=== PATIENT | female | born 1970 | race Hispanic/Latino ===

== ENCOUNTER 2016-09-23 08:44 | Emergency (ER) | payer OTHER ==
[~2016-09-23] VITALS: Ht 167.6 cm; Wt 88.0 kg
[~2016-09-23 08:44] MED LIST: ALEVE220 MG PO; FLEXERIL10 MG PO; MOTRIN800 MG PO; MULTIVITAMIN1 TAB PO; PROBIOTIC FORMU1 CAP PO
--- NOTE | 2016-09-23 09:04 | ED GENERAL ADULT ---
History of Present Illness General Chief Complaint: General Adult Stated Complaint: VOMITING AND CHEST DISCOMFORT"IT COULD BE STRESS" Source: patient Exam Limitations: no limitations Vital Signs & Intake/Output Vital Signs & Intake/Output Vital Signs Date Time Temp Pulse Resp B/P Pulse O2 O2 Flow FiO2 Ox Delivery Rate 09/23 1124 98.0 84 18 115/72 98 Room Air Room Air 09/23 0851 97.9 86 20 110/73 99 Room Air Room Air Allergies Coded Allergies: codeine (Intermediate, VOMITING 09/23/16) Reconcile Medications CYCLOBENZAPRINE HCL (Flexeril) 10 MG TAB 1 TAB PO TID PRN SPASM Avoid operating motor vehicle or heavy machinery Dicyclomine Hydrochloride (Bentyl) 10 MG CAPSULE 1 CAP PO TID PRN ABDOMINAL PAIN Ibuprofen (Motrin) 800 MG TAB 1 TAB PO TID PRN PAIN Lactobacillus Acidophilus (Probiotic Formula Capsule) 10B CELL CAPSULE 1 CAP PO DAILY PROBIOTIC (Reported) Multivitamin (Multiple Vitamins) 1 EACH TABLET 1 TAB PO DAILY SUPPLEMENT ( Reported) Naproxen Sodium (Aleve) 220 MG TABLET 2 TAB PO DAILY PRN PAIN (Reported) Ondansetron HCl (Zofran) 4 MG TABLET 1 TAB PO Q6-8P PRN NAUSEA Triage Note: PT TO ED WITH C/O NAUSEA AND VOMITING SINCE LAST NIGHT, DENIES DIARRHEA, DENIES URINARY DIFF. Triage Nurses Notes Reviewed? yes Onset: Abrupt Duration: constant Severity: mild Severity Numbers: 3 Modifying Factors: Worsens With: eating. : No Patient currently breastfeeds: No HPI: Patient is a 46-year-old female with a past medical history of anxiety who presents to emergency and that on Thursday 4 days ago after eating fish at a restaurant she had acute onset of 30 minutes after of upset stomach and nausea in which patient in the last 48 hours is had 3 episodes of nonbloody nonbilious emesis. Last bowel movement was within the last 24 hours no blood no melena noted. Denies any recent antibiotic use. Denies any fevers chills patient has been complaining of intermittent chest pain for the past 3 days. Patient is treating this to anxiety. Denies any dysuria hematuria vaginal bleeding vaginal discharge back pain. Patient last menstrual period was 8 days ago. Denies any . Patient can tolerate sips of water. (ANNE-MARIE PETERSEN,OSEAS) Past History Travel History Traveled to [place] past 21 day No Medical History Any Pertinent Medical History? 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 No (OSEAS OMALLEY) Review of Systems Review of Systems Constitutional: Reports: no symptoms. EENTM: Reports: no symptoms. Respiratory: Reports: no symptoms. Cardiovascular: Reports: no symptoms. GI: Reports: see HPI, nausea. Genitourinary: Reports: no symptoms. Musculoskeletal: Reports: no symptoms. Skin: Reports: no symptoms. Neurological/Psychological: Reports: no symptoms. Hematologic/Endocrine: Reports: no symptoms. Immunologic/Allergic: Reports: no symptoms. All Other Systems: Reviewed and Negative (OSEAS OMALLEY) Physical Exam Physical Exam General Appearance: no apparent distress, alert Comments: Well-developed well-nourished person in no acute distress HEENT: Normal EENT exam, Neck: Supple, no lymphadenopathy, normal range of motion without pain or tenderness Back: Nontender, no CVA tenderness. Cardiovascular: Regular rate and rhythms no murmurs rubs or gallops, normal JVP Respiratory: Chest nontender. No respiratory distress.breath sounds clear to auscultation bilaterally Abdomen: Soft, mild generalized point tenderness noted, no rebound tenderness no peritoneal signs nondistended, no appreciable organomegaly. Normal bowel sounds. No ascites Extremity: No edema, no calf tenderness to palpation, normal and equal pulses. Neuro: Alert oriented x3, motor sensory normal, Skin: No appreciable rash on exposed skin, skin is warm and dry. Psych: Mood and affect is normal, memory and judgment is normal. Core Measures ACS in differential dx? No CVA/TIA Diagnosis: No Severe Sepsis Present: No Septic Shock Present: No (OSEAS OMALLEY) Progress Differential Diagnoses I considered the following diagnoses in my evaluation of the patient: [ Gastroenteritis, appendicitis, SBO, colitis, C. difficile, mesenteric ischemia, pancreatitis, cholangitis, cholecystitis] Plan of Care: Orders Procedure Date/time Status EKG 09/23 0820 Active Current Medications Sig/Tommie Start time Last Medication Dose Stop Time Status Admin Ondansetron HCl 4 MG ONCE ONE 09/23 1000 CAN (Zofran) 09/23 1001 Sodium Chloride 1,000 ML BOLUS ONE 09/23 1000 CAN (Normal Saline 0.9%) 09/23 1059 Laboratory Tests 09/23/16 0947: Total Beta HCG Cancelled, CBC w Diff Cancelled, WBC Cancelled, RBC Cancelled, Hgb Cancelled, Hct Cancelled, MCV Cancelled, MCH Cancelled, RDW Cancelled, Plt Count Cancelled, MPV Cancelled, PUBS MCHC Cancelled, Urine Test Cancelled Patient has been complaining of intermittent chest pain however nothing today. Patient also has mild abdominal tenderness however patient is attributing this tenderness to multiple episodes of vomiting. Blood work was ordered however patient adamantly declines this evaluation and wanted just something for nausea. I stressed the importance to evaluate patient's symptoms however she still declined this evaluation. Patient did sign AMA form and was educated on risks if this was not evaluated and she understood and still refused blood work and urine analysis. EKG was unremarkable. Patient will be administered by mouth Zofran and is able to tolerate by mouth challenge. (OSEAS OMALLEY) Initial ED EKG: none (OSEAS OMALLEY) Differential Diagnoses I considered the following diagnoses in my evaluation of the patient: (BEATRIZ LOPEZ,MICKEY Whittaker) Departure Departure Disposition: LEFT AGAINST MEDICAL ADVICE Condition: Stable Clinical Impression Primary Impression: Abdominal pain Secondary Impressions: Nausea & vomiting Referrals: PATIENT HAS NO PRIMARY CARE DR (PCP/Family) Additional Instructions: DISCUSSED YOU ARE LEAVING AGAINST MEDICAL ADVICE, BEGIN THE PRESCRIPTION OF ZOFRAN FOR NAUSEA BEGIN THE PRESCRIPTION OF BENTYL FOR YOUR SYMPTOMS CLEAR LIQUID DIET TO REST YOUR BOWELS IF SYMPTOMS WORSEN, RETURN TO THE ER FOLLOW UP WITH GI DOCTOR ARJUN IF NO BETTER IN TWO DAYS PRESCRIPTIONS ARE WAITING AT [facility] Departure Forms: Customer Survey General Discharge Information Prescriptions: Current Visit Scripts Ondansetron HCl (Zofran) 1 TAB PO Q6-8P PRN NAUSEA #15 TAB Dicyclomine Hydrochloride (Bentyl) 1 CAP PO TID PRN ABDOMINAL PAIN #9 CAP (OSEAS OMALLEY) PA/BAKER BREAD Co-Sign Statement Statement: ED Attending supervision documentation- [] I saw and evaluated the patient. I have also reviewed all the pertinent lab results and diagnostic results. I agree with the findings and the plan of care as documented in the PA's/BAKER BREAD's documentation. [x] I have reviewed the ED Record and agree with the PA's/BAKER BREAD's documentation. [] Additions or exceptions (if any) to the PAs/BAKER BREAD's note and plan are summarized below: [] (BEATRIZ LOPEZ,MICKEY Whittaker) Critical Care Note Critical Care Note Critical Care Time: non-applicable (ANNE-MARIE PETERSEN,OSEAS)
[2016-09-23] MEDS ORDERED: ZOFRAN4 M2 PO (10:51)
[2016-09-23] MEDS ORDERED: BENTYL10 M1 PO (10:51)
[2016-09-23 11:24] VITALS: BP 115/72
== END 2016-09-23 11:25 | disposition left against medical advice (07) ==
LOC: ERH 08:44
DX: R10.9 Unspecified abdominal pain (principal); R11.2 Nausea with vomiting, unspecified
CPT/HCPCS: 81025; 93005; 93010; J3101

== ENCOUNTER 2016-11-13 14:58 | Emergency (ER) | payer OTHER ==
[~2016-11-13] VITALS: Ht 167.6 cm; Wt 88.0 kg
[~2016-11-13 14:58] MED LIST changes: +BENTYL10 M1 PO; +ZOFRAN4 M2 PO
[2016-11-13 16:04] LABS: ABSOLUTE BASOPHIL COUNT 0 /CUMM (0.0-0.2); ABSOLUTE EOSINOPHIL COUNT 0.3 /CUMM (0.0-0.7); ABSOLUTE GRANULOCYTE CT 4.9 /CUMM (1.4-6.5); ABSOLUTE MONOCYTE COUNT 0.5 /CUMM (0.10-0.60); BASOPHIL % 0.4 % (0.0-2.0); EOSINOPHIL % 3.4 % (0-5); GRANULOCYTE % 64.3 % (42.2-75.2); HEMATOCRIT 37.8 % (37-47); MEAN CORPUSCULAR HGB 31.7 PG (27.0-31.0); MEAN CORPUSCULAR HGB CONC 34.3 G/DL (33.0-37.0); MEAN CORPUSCULAR VOLUME 92.5 FL (81.0-99.0); MEAN PLATELET VOLUME 9.5 FL (7.4-10.4); PLATELET COUNT 281 /CUMM (130-400); RBC DISTRIBUTION WIDTH 12.9 % (11.5-14.5); RED BLOOD CELL CT 4.09 /CUMM (4.20-5.40); WHITE BLOOD CELL COUNT 7.6 /CUMM (4.8-10.8)
[2016-11-13 16:30] VITALS: BP 107/49
--- NOTE | 2016-11-13 17:54 | ED GI/GU/ABDOMINAL COMPLAINT ---
History of Present Illness General Chief Complaint: Abdominal Pain/Flank Pain Stated Complaint: L FLANK PAIN Source: patient Exam Limitations: no limitations Allergies Coded Allergies: codeine (Intermediate, VOMITING 09/23/16) Reconcile Medications No Known Home Medications Triage Note: PT TO ED FOR 4 DAYS OF L SIDED PELVIC PAIN, STATES SHE HAS A HERNIA REPAIR ON THAT SIDE AND IS CONCERNED "SOMETHING IS WRONG WITH THE MESH". DENIES N/V/D. Triage Nurses Notes Reviewed? yes ? N Is pt currently ? No HPI: This patient is a 46-year-old female who presented to the emergency department today for evaluation of left groin pain. She reported that since the weekend she started to develop pain in her left groin which gets up to a 7 out of 10. She reported that it is nonradiating and feels a pressure. She reported that it has been constant. She reported that she did have a prior left inguinal hernia repair in that region and she is worried that there is something wrong with the mesh. She also reported that she is worried that it is, "my tubes." She denied any vaginal bleeding, discharge, odor. She did report some associated left flank pain. She reported that she has not been having any urinary symptoms such as burning, urgency, frequency, or blood in the urine. She denied any nausea, vomiting, or abdominal pain. She denied any fevers, chills, chest pain, or difficulty breathing. No constipation or diarrhea (CLARY GARCÍA,HELLEN) Vital Signs & Intake/Output Vital Signs & Intake/Output Vital Signs Date Time Temp Pulse Resp B/P Pulse O2 O2 Flow FiO2 Ox Delivery Rate 11/13 1630 97.5 53 18 107/49 99 11/13 1512 96.9 60 18 108/68 99 Room Air ED Intake and Output 11/14 0000 11/13 1200 Intake Total 1000 Output Total Balance 1000 Intake, IV 1000 Patient 194 lb Weight Past History Travel History Traveled to [place] past 21 day No Medical History Any Pertinent Medical History? 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 No (HELLEN MEANS PA-C) Review of Systems Review of Systems Constitutional: Reports: no symptoms. EENTM: Reports: no symptoms. Respiratory: Reports: no symptoms. Cardiovascular: Reports: no symptoms. GI: Reports: no symptoms. Genitourinary: Reports: see HPI. Musculoskeletal: Reports: see HPI. Skin: Reports: no symptoms. Neurological/Psychological: Reports: no symptoms. All Other Systems: Reviewed and Negative (HELLEN MEANS PA-C) Physical Exam Physical Exam Gastrointestinal: normal bowel sounds, soft, non-tender, no organomegaly, NO REBOUND OR GUARDING. nO PERITONEAL SIGNS. nO MASSES OR HERNIAS APPRECIATED. tENDERNESS TO PALPATION IN THE LEFT GROIN REGION Comments: Well-developed well-nourished person in no acute distress HEENT: Normal EENT exam, moist mucous membranes Pupils equally round and reactive to light. Neck: Supple, no lymphadenopathy Back: Normal gait. Normal inspection. No CVA tenderness Cardiovascular: Regular rate and rhythm with no murmurs, rubs, or gallops Respiratory: No respiratory distress. Breath sounds clear to auscultation bilaterally Extremity: Normal equal pulses Neuro: Alert oriented x3, cranial nerves II through XII grossly intact. Skin: No appreciable rash on exposed skin, skin is warm and dry. Psych: Mood and affect is normal Core Measures ACS in differential dx? No Severe Sepsis Present: No Septic Shock Present: No (HELLEN MEANS PA-C) Progress Differential Diagnosis: appendicitis, biliary colic, bowel obstruction, colon cancer, cholecystitis, diverticulitis, ectopic , endometritis, gastritis, hepatitis, hernia, ischemic bowel, inflamm bowel dis, intrauterine , kidney stone, ovarian cyst, ovarian torsion, pancreatitis, PID/ cervicitis, PUD/GERD, perforated viscous, threatened AB, UTI/pyelo Plan of Care: Orders Procedure Date/time Status HUMAN BETA HCG SCREEN 11/13 1531 Complete COMPREHENSIVE METABOLIC PANEL 11/13 1531 Complete CBC WITHOUT DIFFERENTIAL 11/13 1531 Complete Laboratory Tests 11/13/16 1555: Anion Gap 7, Estimated GFR > 60, BUN/Creatinine Ratio 23.3, Glucose 101 H, Calcium 9.2, Total Bilirubin 0.4, AST 30, ALT 43, Alkaline Phosphatase 46, Total Protein 6.6, Albumin 3.7, Globulin 2.9, Albumin/Globulin Ratio 1.3, Total Beta HCG NEGATIVE, CBC w Diff NO MAN DIFF REQ, RBC 4.09 L, MCV 92.5, MCH 31.7 H, RDW 12.9, MPV 9.5, Gran % 64.3, Lymphocytes % 25.8, Monocytes % 6.1, Eosinophils % 3.4, Basophils % 0.4, Absolute Granulocytes 4.9, Absolute Lymphocytes 2.0, Absolute Monocytes 0.5, Absolute Eosinophils 0.3, Absolute Basophils 0, PUBS MCHC 34.3 Diagnostic Imaging: Viewed by Me: CT Scan, Ultrasound. Discussed w/RAD: CT Scan, Ultrasound. Radiology Impression: PATIENT: TONI PANIAGUA PRESENT AGE: 46 PATIENT ACCOUNT NO: [id number] : 71 LOCATION: [facility] ORDERING PHYSICIAN: HELLEN MEANS PA-C SERVICE DATE: 11/13/16 EXAM TYPE: US - US-TRANSVAGINAL EXAMINATION: US TRANSVAGINAL CLINICAL INFORMATION: Left groin pain. COMPARISON: CT abdomen and pelvis from 05/30/2015. TECHNIQUE: Sonographic imaging of the pelvis was performed using transabdominal and transvaginal transducers. FINDINGS: The anteflexed uterus measures approximately 4.6 cm long, 3.7 cm AP and 4.5 cm transverse. The cervical canal is 2.7 cm in length and a small amount of endocervical fluid is noted. The endometrium has normal echotexture and measures up to 0.4 cm AP. There is a 1.5 x 1.6 x 1.8 cm intramural leiomyoma of the anterior uterine body/fundus. There is a small area of calcification of the cervix. The right ovary is 1.3 x 1.4 x 1.8 cm and the left ovary is 1.4 x 1.2 x 1.4 cm. There are no adnexal masses. The pulsed color Doppler images with spectral waveforms show presence of normal arterial flow within each ovary. No pelvic free fluid. IMPRESSION: 1. No evidence of ovarian mass or torsion. 2. There is a 1.5 x 1.6 x 1.8 cm intramural leiomyoma in the region of the anterior uterine body/fundus. DICTATED BY: OSMIN SANCHEZ MD DATE /TIME DICTATED:11/13/161826 HEAD WOOD GRINDER:RAD.GAYLE DATE/TIME TRANSCRIBED: 11/13/161826 CONFIDENTIAL, DO NOT COPY WITHOUT APPROPRIATE AUTHORIZATION. < Electronically signed in Other Vendor System> SIGNED BY: OSMIN SANCHEZ MD 11/13/161836, PATIENT: TONI PANIAGUA PRESENT AGE: 46 PATIENT ACCOUNT NO: [id number] : 71 LOCATION: [facility] ORDERING PHYSICIAN: HELLEN MEANS PA-C SERVICE DATE: 11/13/16 EXAM TYPE: CAT - CT ABD & PELVIS W IV CONTRAST EXAMINATION: CT ABDOMEN AND PELVIS WITH CONTRAST CLINICAL INFORMATION: Left groin pain. Evaluate for hernia. COMPARISON: 05/30/2015. TECHNIQUE: Multidetector volumetric imaging was performed of the abdomen and pelvis before and after the IV administration of 94 mL of of Optiray 320 intravenous contrast. Sagittal and coronal reformatted images were obtained on the technologist's workstation. DLP: 445 mGy-cm FINDINGS: LUNG BASES: The bilateral breast implants are partially included in the [id number]. No acute findings in the lung bases. LIVER, GALLBLADDER, AND BILIARY TREE: The liver is normal in size, shape, and attenuation. No focal hepatic lesion or biliary ductal dilatation. The gallbladder is underdistended. No evidence of radiopaque calculi, gallbladder wall edema or pericholecystic inflammatory change. PANCREAS : Unremarkable. SPLEEN: Unremarkable. ADRENAL GLANDS: Unremarkable. KIDNEYS AND URETERS: Kidneys are normal in size and enhance symmetrically. No nephrolithiasis, hydroureteronephrosis or perinephric edema. BLADDER: Unremarkable. GASTROINTESTINAL TRACT: Stomach is unremarkable. Bowel loops are normal in caliber. The terminal ileum and appendix are normal. No pericolonic fat stranding. There is no evidence of acute inflammation or obstruction along the gastrointestinal tract. No ascites or pneumoperitoneum. ABDOMINAL WALL: Unremarkable. No inguinal hernia. LYMPH NODES: No pathologic sized lymph nodes within the abdomen or pelvis. VASCULAR: Abdominal aorta is normal in caliber and the celiac trunk, SMA, ANTOINE and renal arteries are widely patient. PELVIC VISCERA : The uterus is anteflexed. A 1 cm subserosal leiomyoma of the uterine fundus is noted. No adnexal mass or pelvic free fluid. A few phleboliths are present in the lower pelvis. OSSEOUS STRUCTURES: There is a bone island of the left sacrum. No suspicious osseous lesions. IMPRESSION: 1. No acute imaging abnormalities within the abdomen or pelvis. 2. No evidence of abdominal wall or inguinal hernia. 3. Leiomyoma of the uterus. DICTATED BY: OSMIN SANCHEZ MD DATE/TIME DICTATED:11/13/161838 HEAD WOOD GRINDER:GYPSY DATE/TIME TRANSCRIBED:1838 CONFIDENTIAL, DO NOT COPY WITHOUT APPROPRIATE AUTHORIZATION. < Electronically signed in Other Vendor System> SIGNED BY: OSMIN SANCHEZ MD 11/13/161850 Initial ED EKG: none (HELLEN MEANS PA-C) Departure Departure Disposition: HOME OR SELF CARE Condition: Stable Clinical Impression Primary Impression: Fibroid Qualifiers: Uterine leiomyoma location: intramural Qualified Code: D25.1 - Intramural leiomyoma of uterus Referrals: PATIENT HAS NO PRIMARY CARE DR (PCP/Family) Additional Instructions: You may take [id number] ibuprofen or Tylenol for your pain. Please rest and stay hydrated. Please call to make a follow-up appointment with your OB/ LACING OPERATOR. Return for any worsening symptoms or concerns. Departure Forms: Customer Survey General Discharge Information Prescriptions: Current Visit Scripts No Known Home Medications (HELLEN MEANS PA-C) PA/SUPERVISOR PERSONNEL CLERKS Co-Sign Statement Statement: ED Attending supervision documentation- [] I saw and evaluated the patient. I have also reviewed all the pertinent lab results and diagnostic results. I agree with the findings and the plan of care as documented in the PA's/SUPERVISOR PERSONNEL CLERKS's documentation. [X] I have reviewed the ED Record and agree with the PA's/SUPERVISOR PERSONNEL CLERKS's documentation. [] Additions or exceptions (if any) to the PAs/SUPERVISOR PERSONNEL CLERKS's note and plan are summarized below: [] (RIO SILVA,ORTEGA Carballo)
--- NOTE | 2016-11-13 18:37 | ULTRASOUND REPORT ---
EXAMINATION: US TRANSVAGINAL CLINICAL INFORMATION: Left groin pain. COMPARISON: CT abdomen and pelvis from 05/30/2015. TECHNIQUE: Sonographic imaging of the pelvis was performed using transabdominal and transvaginal transducers. FINDINGS: The anteflexed uterus measures approximately 4.6 cm long, 3.7 cm AP and 4.5 cm transverse. The cervical canal is 2.7 cm in length and a small amount of endocervical fluid is noted. The endometrium has normal echotexture and measures up to 0.4 cm AP. There is a 1.5 x 1.6 x 1.8 cm intramural leiomyoma of the anterior uterine body/fundus. There is a small area of calcification of the cervix. The right ovary is 1.3 x 1.4 x 1.8 cm and the left ovary is 1.4 x 1.2 x 1.4 cm. There are no adnexal masses. The pulsed color Doppler images with spectral waveforms show presence of normal arterial flow within each ovary. No pelvic free fluid. IMPRESSION: 1. No evidence of ovarian mass or torsion. 2. There is a 1.5 x 1.6 x 1.8 cm intramural leiomyoma in the region of the anterior uterine body/fundus.
--- NOTE | 2016-11-13 18:51 | CT SCAN REPORT ---
EXAMINATION: CT ABDOMEN AND PELVIS WITH CONTRAST CLINICAL INFORMATION: Left groin pain. Evaluate for hernia. COMPARISON: 05/30/2015. TECHNIQUE: Multidetector volumetric imaging was performed of the abdomen and pelvis before and after the IV administration of 94 mL of of Optiray 320 intravenous contrast. Sagittal and coronal reformatted images were obtained on the technologist's workstation. DLP: 445 mGy-cm FINDINGS: LUNG BASES: The bilateral breast implants are partially included in the [id number]. No acute findings in the lung bases. LIVER, GALLBLADDER, AND BILIARY TREE: The liver is normal in size, shape, and attenuation. No focal hepatic lesion or biliary ductal dilatation. The gallbladder is underdistended. No evidence of radiopaque calculi, gallbladder wall edema or pericholecystic inflammatory change. PANCREAS: Unremarkable. SPLEEN: Unremarkable. ADRENAL GLANDS: Unremarkable. KIDNEYS AND URETERS: Kidneys are normal in size and enhance symmetrically. No nephrolithiasis, hydroureteronephrosis or perinephric edema. BLADDER: Unremarkable. GASTROINTESTINAL TRACT: Stomach is unremarkable. Bowel loops are normal in caliber. The terminal ileum and appendix are normal. No pericolonic fat stranding. There is no evidence of acute inflammation or obstruction along the gastrointestinal tract. No ascites or pneumoperitoneum. ABDOMINAL WALL: Unremarkable. No inguinal hernia. LYMPH NODES: No pathologic sized lymph nodes within the abdomen or pelvis. VASCULAR: Abdominal aorta is normal in caliber and the celiac trunk, SMA, ANTOINE and renal arteries are widely patient. PELVIC VISCERA: The uterus is anteflexed. A 1 cm subserosal leiomyoma of the uterine fundus is noted. No adnexal mass or pelvic free fluid. A few phleboliths are present in the lower pelvis. OSSEOUS STRUCTURES: There is a bone island of the left sacrum. No suspicious osseous lesions. IMPRESSION: 1. No acute imaging abnormalities within the abdomen or pelvis. 2. No evidence of abdominal wall or inguinal hernia. 3. Leiomyoma of the uterus.
== END 2016-11-13 19:08 ==
LOC: ERH 14:58
PROVIDERS: Physician Assistant
DX: D25.1 Intramural leiomyoma of uterus (principal)
CPT/HCPCS: 74177; 96361; 96374; J1885

== ENCOUNTER 2017-02-05 18:51 | Emergency (ER) | payer SELFPAY ==
[~2017-02-05] VITALS: Ht 167.6 cm; Wt 88.0 kg
[2017-02-05 18:57] VITALS: BP 117/70
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
[2017-02-05] MEDS ORDERED: IBUPROFEN800 M1 PO (19:39)
[2017-02-05] MEDS ORDERED: CYCLOBENZAPRINE5 M2 PO (19:39)
[2017-02-05] MEDS ORDERED: MULTI-DAY VITA1 EACH PO (19:45)
== END 2017-02-05 19:57 ==
LOC: ERH 18:51
DX: S29.012A Strain of muscle and tendon of back wall of thorax, initial encounter (principal); V49.40XA Driver injured in collision with unspecified motor vehicles in traffic accident, initial encounter; Y92.410 Unspecified street and highway as the place of occurrence of the external cause